=== PATIENT | female | born 1980 | race Two or more races ===

== ENCOUNTER 2024-12-31 12:10 | Inpatient (IN) | payer OTHER ==
[~2024-12-31] VITALS: Ht 149.9 cm; Wt 57.2 kg
[2024-12-31] MEDS ORDERED: LIPITOR20 MG PO (12:35)
[2024-12-31] MEDS ORDERED: MEGESTROL ACETA40 MG PO (12:36)
[2025-01-06] MEDS ORDERED: CEFAZOLIN SODIUM 1,000 MG VIAL ONE (10:28)
[2025-01-06] MEDS ORDERED: POVIDONE-IODINE 118 ML BOTT TOP ONE (10:34)
[2025-01-06] MEDS ORDERED: MORPHINE SULFATE 4 MG/ML VIAL IV ONE ×3 (13:15→16:25)
[2025-01-06] MEDS ORDERED: PROMETHAZINE HCL 25 MG/ML AMPUL IV SCH (13:32)
[2025-01-06] MEDS ORDERED: MORPHINE SULFATE 4 MG/ML CARTRIDGE IV SCH (16:00)
[2025-01-06 17:03] VITALS: BP 114/69
[2025-01-06 18:04] LABS: BASO % 0.2 % (0.1-1.2); HEMOGLOBIN 11.1 g/dL (11.2-15.7); LYMPH # 0.91 (1.18-3.74); MEAN CORPUSCULAR HEMOGLOBIN 25.6 pg (25.6-32.2); MONO # 0.99 (0.24-0.82); MONO % 6.5 % (4.7-12.5); NEUT # 13.19 (1.56-6.13); PLATELET COUNT 340 K/uL (163-369); RED BLOOD COUNT 4.33 M/uL (3.93-5.22); RED CELL DISTRIBUTION WIDTH 18.9 % (11.6-14.4)
[2025-01-07 01:53] VITALS: BP 106/63
[2025-01-07] MEDS ORDERED: GABAPENTIN 300 MG CAPSULE PO SCH (05:00)
[2025-01-07] MEDS ORDERED: IBUprofen 800 MG TABLET PO SCH (06:00)
[2025-01-07 08:00] VITALS: BP 102/66
[2025-01-07] MEDS ORDERED: POLYETHYLENE GLYCOL 3350 17 GM BLIST.PACK PO SCH (09:00)
[2025-01-07] MEDS ORDERED: SIMETHICONE 125 MG CAPSULE PO SCH (09:00)
[2025-01-07 16:06] VITALS: BP 113/74
[2025-01-08 01:26] VITALS: BP 111/68
[2025-01-08 06:55] VITALS: BP 116/71
[2025-01-08] MEDS ORDERED: SIMETHICONE125 M1 PO (06:55)
[2025-01-08] MEDS ORDERED: POLY119PG PO (06:55)
[2025-01-08] MEDS ORDERED: GABAPENTIN300 MG PO (06:55)
[2025-01-08] MEDS ORDERED: IBUPROFEN800 MG PO (06:55)
[2025-01-08 08:24] VITALS: BP 113/74
== END 2025-01-08 10:39 | disposition home or self-care (01) | DRG 743 ==
LOC: O/R 01-06 06:39 → OB/GYN 01-06 06:39
PROVIDERS: ADMIT Obstetrics & Gynecology; ATTEND Obstetrics & Gynecology
PROC: 0DNW0ZZ Release Peritoneum, Open Approach (ICD-10-PCS; 2025-01-06)
PROC: 0UT90ZZ Resection of Uterus, Open Approach (ICD-10-PCS; principal; 2025-01-06 08:30)
DX: D25.1 Intramural leiomyoma of uterus (principal); D25.2 Subserosal leiomyoma of uterus; N93.9 Abnormal uterine and vaginal bleeding, unspecified; R10.2 Pelvic and perineal pain